=== PATIENT | female | born 1970 | race Caucasian/White ===

== ENCOUNTER 2022-07-22 16:14 | Emergency (ER) | payer OTHER, SELFPAY ==
--- NOTE | ~2022-07-22 | XR_ITS ---
EXAM: XR humerus LT DATE: 07/22/2022 16:49 HISTORY: fell in tub today/proximal 1/2 of humerus pain . COMPARISON: None available. FINDINGS: Normal mineralization. No fracture or dislocation. No lytic or blastic lesion. Joint space s and physes are maintained. No erosion or periosteal change. Soft tissues within normal limits. IMPRESSION: No acute osseous finding in the left humerus. Reviewed, dictated and finalized at location K. ENGINEER
--- NOTE | ~2022-07-22 | XR_ITS ---
EXAM: XR foot LT min 3V DATE: 07/22/2022 16:48 HISTORY: fell in tub today/attn 2-3 toes . COMPARISON: None available. FINDINGS: Normal mineralization. No fracture or dislocation. No lytic or blastic lesion. Joint space s are maintained. Achilles and plantar enthesopathy No erosion or periosteal change. Soft tissues wit hin normal limits. IMPRESSION: No acute osseous finding in the left foot. Reviewed, dictated and finalized at location K. UIT CLERK
--- NOTE | 2022-07-22 16:19 | ED.FALL ---
HPI - Fall General Chief Complaint: Extremity Injury, Lower Stated Complaint: Lt Arm and Foot Pain due to Fall Time Seen by Provider: 07/22/22 16:18 Source: patient Mode of arrival: ambulatory Limitations: no limitations History of Present Illness HPI Narrative: Ms. Mayberry is a 52-year-old female patient presenting to the clinic today with complaints of left upper arm pain and left foot 2nd and 3rd toe pain after a fall. She reports she fell approximately 12 30 today. Has bruising to the anterior upper arm and pain to the 2nd 3rd toe of the left foot. Is unaware of how she fell while getting out of the bathtub. She denies hitting her head or any neck pain. She denies any loss of consciousness. Related Data Home Medications Medication Instructions Recorded Confirmed estradiol 2 mg tablet 2 mg PO DAILY 07/22/22 07/22/22 Allergies Allergy/AdvReac Type Severity Reaction Status Date / Time morphine AdvReac Mild Hives Verified 07/22/22 16:43 Penicillins AdvReac Mild Hives Verified 07/22/22 16:43 Review of Systems Review of Systems: Pertinent positives per HPI. Patient denies any fever, chills, rash, headache, visual changes, dizziness, cough, runny nose, sore throat, shortness of breath, chest pain, palpitations, nausea, vomiting, diarrhea, constipation, abdominal pain, or any urinary issues. PMFSH Comments At the time of my signature, I reviewed and agree with the nursing past medical, surgical, social, and family history. There is no relevant family history pertinent to the patient complaint. Exam Narrative: General: Well-developed, well nourished, in no apparent distress Head: Normocephalic, atraumatic. Cardio: Regular rate and rhythm, s1 and s2 normal, no murmur appreciated. Resp: Clear to auscultation bilaterally, no rhonchi, rales, wheezing or rubs. Musculoskeletal: No deformity, bruising noted over the anterior left humerus,tender to palpation over the left anterior humerus and the 2nd and 3rd toes on the left foot, swelling noted over the left humerus and left elbow, grossly normal range of motion, muscle strength strong and equal, peripheral pulse strong,no cyanosis, normal gait and station Course Course Emergency Course: Portions of this record may have been created with voice recognition software. Level of Care: Express Care Visit Vital Signs Vital signs: Vital Signs Temperature 36.6 C 07/22/22 16:29 Pulse Rate 63 07/22/22 16:29 Respiratory Rate 18 07/22/22 16:29 Blood Pressure 140/82 07/22/22 16:29 Pulse Oximetry 100 07/22/22 16:29 Oxygen Delivery Room Air 07/22/22 16:29 Temperature 36.6 C 07/22/22 16:29 Pulse Rate 63 07/22/22 16:29 Respiratory Rate 18 07/22/22 16:29 Blood Pressure 140/82 07/22/22 16:29 Pulse Oximetry 100 07/22/22 16:29 Oxygen Delivery Room Air 07/22/22 16:29 Vital signs reviewed MDM - Fall MDM Narrative Medical decision making narrative: At the time of visit patient is resting comfortably on the exam table. X-ray was performed of the left humerus and left foot and both were negative for any fracture or malalignment. I suspect patient has a contusion of the humerus and a sprain of the 2nd 3rd left toes. Supportive measures were discussed with the patient she voiced understanding discharge instructions and agrees to treatment plan. Differential Diagnosis Differential diagnosis: Likely other (Contusion of humerus, contusion of toes, fractured toes, fracture humerus) Imaging Data Radiologist's impression: [place] [address] XRay Report Signed Patient: Letha Mayberry : 1970 MR#: [id number] Age/Sex: 52 / F Acct:[id number] Loc: [facility]? ? ADM Date: 07/22/22Attending Dr: Ordering Physician: Zi De La Vega APRN Date of Service: 07/22/22 Procedure(s): XR foot LT min 3V Accession Number(s): [id number] cc: Zi De La Vega
[2022-07-22 16:29] VITALS: BP 140/82; PULSE 63; RESP 18; TEMP 36.6; O2SAT 100
== END 2022-07-22 16:59 | disposition home or self-care (01) ==
PROVIDERS: Emergency Provider Nurse Practitioner Family
DX: S40.022A Contusion of left upper arm, initial encounter (principal); W19.XXXA Unspecified fall, initial encounter; S93.505A Unspecified sprain of left lesser toe(s), initial encounter; N80.9 Endometriosis, unspecified
CPT/HCPCS: 73060; 73630; 99204; G0463

== ENCOUNTER 2024-05-02 08:00 | Emergency (ER) | payer SELFPAY ==
[2024-05-02 08:17] VITALS: BP 136/74; PULSE 54; RESP 18; TEMP 36.5; O2SAT 100
--- NOTE | 2024-05-02 08:35 | ED.URI ---
HPI - URI/Sore Throat General Chief Complaint: Upper Respiratory Infection Stated Complaint: Ear ache / sore throat / cough Time Seen by Provider: 05/02/24 08:31 Source: patient and RN notes reviewed Mode of arrival: ambulatory Limitations: no limitations History of Present Illness HPI Narrative: Patient presents today with a 3 day history left ear pain, sore throat, body aches, postnasal drip productive cough, and sinus pressure. Denies fever or shortness of breath. She has been taking DayQuil and NyQuil with mild relief. She currently rates her pain 4/10. History of asthma, but has not needed to use her rescue inhaler. She did a home COVID test on the 1st day of symptoms negative. Related Data Home Medications Medication Instructions Recorded Confirmed estradiol 2 mg tablet 2 mg PO DAILY 07/22/22 07/22/22 cetirizine 10 mg tablet (Zyrtec) mg 05/02/24 montelukast 10 mg tablet mg 05/02/24 Allergies Allergy/AdvReac Type Severity Reaction Status Date / Time morphine Allergy Mild Hives Verified 05/02/24 08:20 Penicillins Allergy Mild Hives Verified 05/02/24 08:20 Review of Systems Review of Systems: CONSTITUTIONAL: Denies fever, chills, or sweats.+ body aches EYES: Denies visual changes, redness, or discharge. ENT: Denies rhinorrhea, congestion. + sore throat ear drip, sinus pressure CARDIOVASCULAR: Denies chest pain, palpitations, or edema. RESPIRATORY: Denies dyspnea.+ cough GASTROINTESTINAL: Denies abdominal pain, nausea, vomiting, or diarrhea. GENITOURINARY: Denies dysuria or hematuria. SKIN: Denies rash, itching, or wounds. MUSCULOSKELETAL: Denies back pain, joint pain, or myalgia. NEUROLOGIC: Denies headache, numbness, tingling, or weakness. PSYCH: Denies depression or anxiety. [facility] Past Medical History Medical History (Updated 05/02/24 @ 08:53 by Isaura Taveras, [employer] SUPERVISOR, ) Asthma Comments At time of signature, I have reviewed and agree with nursing past medical, surgical, social and family history unless otherwise noted. Please see nursing chart for further information. There is no relevant family history pertinent to the presenting complaint Exam Narrative: GENERAL: Mildly ill-appearing, well-nourished, and in no acute distress. HEAD: Normocephalic, atraumatic. EYES: EOMI. No redness or drainage. Conjunctivae normal. ENT: Mucous membranes pink and moist. Nares clear. No rhinorrhea. TMs normal bilaterally. Mild middle ear effusions bilaterally with clear fluid. No evidence of bacterial infection. Throat with mild erythema posteriorly. No edema or exudate. Uvula midline. NECK: Normal AROM. Supple. No lymphadenopathy. CHEST: No respiratory distress. Clear to auscultation. HEART: Regular rhythm. Bradycardic. No murmur appreciated. EXTREMITIES: Normal range of motion. No edema. SKIN: Warm, dry, no rash. Capillary refill normal. Normal skin turgor. NEURO: No focal deficits. Alert and oriented x3. Gait steady. PSYCH: Normal affect. No signs of depression or anxiety. Course Course Level of Care: Express Care Visit Vital Signs Vital signs: Vital Signs Temperature 97.7 F 05/02/24 08:17 Pulse Rate 54 L 05/02/24 08:17 Respiratory Rate 18 05/02/24 08:17 Blood Pressure 136/74 05/02/24 08:17 Pulse Oximetry 100 05/02/24 08:17 Oxygen Delivery Room Air 05/02/24 08:17 Temperature 97.7 F 05/02/24 08:17 Pulse Rate 54 L 05/02/24 08:17 Respiratory Rate 18 05/02/24 08:17 Blood Pressure 136/74 05/02/24 08:17 Pulse Oximetry 100 05/02/24 08:17 Oxygen Delivery Room Air 05/02/24 08:17 Bradycardic at baseline. Patient aware MDM - URI/Sore Throat MDM Narrative Medical decision making narrative: All testing negative. Strep culture pending. Symptoms likely viral in etiology. Discussed [id number] medication use and duration of illness. No prescription medications indicated at this time. Anticipatory guidance given. Differential Diagn
[2024-05-02 08:42] LABS: EDSTREPNEGPOS1 Negative (Negative)
[2024-05-02 08:48] LABS: EDCOVIDSCREEN Negative (Negative); EDINFLUASCREEN Negative (Negative); EDINFLUBSCREEN Negative (Negative)
== END 2024-05-02 08:56 | disposition home or self-care (01) ==
PROVIDERS: Emergency Provider Nurse Practitioner
DX: J06.9 Acute upper respiratory infection, unspecified (principal); Z20.822 Contact with and (suspected) exposure to COVID-19; J45.909 Unspecified asthma, uncomplicated
CPT/HCPCS: 87081; 87426; 87804; 87880; 99213; G0463

== ENCOUNTER 2024-09-08 08:48 | Emergency (ER) | payer SELFPAY ==
[2024-09-08 08:59] VITALS: BP 147/75; PULSE 55; RESP 18; TEMP 36.4; O2SAT 100
--- NOTE | 2024-09-08 09:08 | ED_ITS ---
HPI - URI/Sore Throat General Chief Complaint: Upper Respiratory Infection Stated Complaint: sore throat History of Present Illness HPI Narrative: patient is a 54-year-old female, past medical history significant for seasonal allergies, presents to [facility] with 48 hour history of URI symptoms, fever, sinus pressure, intermittent episodes of dizziness, left ear pain sore throat and a cough. Her cough is dry. T-max 101.6? F. She took Tylenol this morning to reduce her fever. She has no chest pain shortness of breath, no abdominal pain nausea vomiting or diarrhea. She denies dysuria. She denies any additional associated symptoms or modifying factors. Related Data Home Medications ?Medication ?Instructions ?Recorded ?Confirmed ?Last Taken ?Type estradiol 2 mg tablet 2 mg PO DAILY 07/22/22 07/22/22 Unknown History cetirizine 10 mg tablet (Zyrtec) mg 05/02/24 Unknown History montelukast 10 mg tablet mg 05/02/24 Unknown History Allergies Allergy/AdvReac Type Severity Reaction Status Date / Time morphine Allergy Mild Hives Verified 05/02/24 08:20 Penicillins Allergy Mild Hives Verified 05/02/24 08:20 Review of Systems Constitutional: Comments: REFER TO HPI ENT: Comments: REFER TO HPI Cardiovascular: Comments: REFER TO HPI Respiratory: Comments: REFER TO HPI [facility] Past Medical History Medical History (Updated 09/08/24 @ 09:38 by ISAAK Richards) Asthma Exam Const: General: healthy appearing Nutritional Appearance: well nourished Orientation/consciousness: patient oriented x3 Limitations: no limitations Other: patient sounds nasally congested when speaking, no stridor or respiratory distress HENMT: Head: normal to inspection Ears: external ears normal and TM abnormal ( TMs retracted bilaterally) Face/Nose/Sinus: Normal external nose present Face and sinus: normal facial exam Mouth: Yes Normal oral and palatal mucosa present Teeth and gingiva: dentition normal Throat: posterior oropharynx normal Other: no TM erythema noted, mild pharyngeal cobblestone appearance appreciated, no exudate or trismus Eyes: Conjunctivae: conjunctivae normal Pupils: Equal, round and reactive pupils present EOM: EOMs intact bilaterally Direct Ophthalmoscopy: no photophobia Neck: Neck: normal visual inspection and no lymphadenopathy Resp: Effort & Inspection: normal respiratory effort Auscultation: clear to auscultation bilaterally Cardio: Rate: regular rate Rhythm: regular rhythm Skin: General skin exam: normal color Rashes: no rashes Neuro: General: patient oriented x3 Cranial nerves: Yes Nystagmus not present Speech: normal speech Gait exam (Neuro): Normal gait present Course Course Emergency Course: strep, influenza a and COVID-19 are negative. Patient's examination is consistent with a viral URI, will treat with short steroid course and cough suppressant as patient also endorses mild vertigo. Follow-up with PCP in 3 days if symptoms not starting to improve. Continue to control fevers with Tylenol as directed [id number]. ER if condition worsens in any way Level of Care: [facility] Care Visit ([id number]) Vital Signs Vital signs: Vital Signs Temperature 36.4 C L 09/08/24 08:59 Pulse Rate 55 L 09/08/24 08:59 Respiratory Rate 18 09/08/24 08:59 Blood Pressure 147/75 H 09/08/24 08:59 Pulse Oximetry 100 09/08/24 08:59 Oxygen Delivery Room Air 09/08/24 08:59 Temperature 36.4 C L 09/08/24 08:59 Pulse Rate 55 L 09/08/24 08:59 Respiratory Rate 18 09/08/24 08:59 Blood Pressure 147/75 H 09/08/24 08:59 Pulse Oximetry 100 09/08/24 08:59 Oxygen Delivery Room Air 09/08/24 08:59 MDM - URI/Sore Throat MDM Narrative Medical decision making narrative: prednisone 40 mg daily for 5 days, promethazine DM for cough suppression, OTC Tylenol for fever reduction, lots of fluids and rest Differential Diagnosis Differential diagnosis: Likely upper respiratory infection, otitis media, sinusitis, viral infection, influenza and other ( COVID-19) Lab Data Labs: Lab Results 09/08/24 09/08/24 Range/Units 09:20 09:25 POC Influenza A Ag Negative (Negative) POC Influenza B Ag Negative (Negative) POC SARS CoV-2 Ag Negative (Negative) POC Grp A Strep Screen Negative (Negative) Discharge Plan Discharge Clinical Impression: Upper respiratory infection Qualifiers: URI type: unspecified viral URI Qualified Code(s): J06.9 - Acute upper respiratory infection, unspecified Patient Disposition: Home, Self-Care Condition: Stable Instructions: Antibiotic Form, Upper Respiratory Infection (ED) Additional Instructions: PUSH FLUIDS, REST, CONTINUE TYLENOL DIRECTED [id number] FOR FEVER REDUCTION, COMPLETE ORAL STEROIDS PRESCRIBED, PROMETHAZINE DM FOR COUGH SUPPRESSION DIRECTED. SEE YOUR PRIMARY DOCTOR IN 3-5 DAYS IF SYMPTOMS NOT STARTING TO IMPROVE. Patient Language: Azeri Prescriptions: New prednisone 20 mg tablet 40 mg PO DAILY 5 Days Qty: 10 0RF promethazine-DM 6.25-15 mg/5 mL syrup 5 ml PO Q4-6H PRN (Reason: cough) Qty: 118 0RF No Action estradiol 2 mg tablet 2 mg PO DAILY montelukast 10 mg tablet cetirizine [Zyrtec] 10 mg Tablet Follow-up/Referrals: Suzy,Anuel [Other] Time of Disposition: 09:39
[2024-09-08 09:23] LABS: EDSTREPNEGPOS1 Negative (Negative)
[2024-09-08 09:27] LABS: EDCOVIDSCREEN Negative (Negative); EDINFLUASCREEN Negative (Negative); EDINFLUBSCREEN Negative (Negative)
== END 2024-09-08 09:43 | disposition home or self-care (01) ==
PROVIDERS: Emergency Provider Nurse Practitioner Family
DX: J06.9 Acute upper respiratory infection, unspecified (principal); J45.909 Unspecified asthma, uncomplicated; Z20.822 Contact with and (suspected) exposure to COVID-19
CPT/HCPCS: 87081; 87426; 87804; 87880; 99213; G0463